=== PATIENT | female | born 1950 | race Hispanic/Latino ===

== ENCOUNTER 2021-03-31 19:52 | Emergency (ER) | payer OTHER ==
[~2021-03-31] VITALS: Ht 147.3 cm; Wt 54.4 kg
[2021-03-31] MEDS ORDERED: 0.9%NACL 1000ML 1,000 ML IV ONE (20:00)
[2021-03-31] MEDS ORDERED: KETOROLAC 30MG VIAL (30MG/ML) IV ONE (20:00)
[2021-03-31] MEDS ORDERED: ONDANSETRON 4MG INJ IVP ONE (20:00)
[2021-03-31] MEDS ORDERED: ONDANSETRON 4MG INJ ONE (20:01)
[2021-03-31] MEDS ORDERED: KETOROLAC 30MG VIAL (30MG/ML) ONE (20:01)
[2021-03-31 20:09] LABS: APPEARANCE,URINE Clear (CLEAR); BILIRUBIN,URINE Negative (NEGATIVE); COLOR,URINE Yellow (YELLOW); GLUCOSE, URINE (UA) Negative (NEGATIVE); KETONES,URINE Negative (NEGATIVE); LEUKOCYTE ESTERASE ,URINE Small (NEGATIVE); NITRATE,URINE Negative (NEGATIVE); OCCULT BLOOD,URINE Negative (NEGATIVE); PROTEIN,URINE Negative (NEGATIVE)
[2021-03-31 20:16] LABS: BASOPHILS % (AUTO) 0.4 % (0.0-5.0); EOSINOPHILS % (AUTO) 1.4 % (0.0-8.0); LYMPHOCYTES % (AUTO) 23.7 % (21.0-51.0); MEAN CORPUSCULAR HEMOGLOBIN 26.5 pg (27.0-33.0); MEAN CORPUSCULAR HGB CONC 32.3 g/dL (32.0-36.0); MEAN CORPUSCULAR VOLUME 82.1 fL (79-99); MONOCYTES % (AUTO) 6.5 % (3.0-13.0); NEUTROPHILS % (AUTO) 67.1 % (40.0-77.0); PLATELET COUNT (AUTO) 257 K/uL (130-400); RED BLOOD CELL COUNT(AUTO) 4.75 MIL/uL (4.00-5.50); RED CELL DISTRIBUTION WIDTH 12.6 % (11.0-15.5); WHITE BLOOD COUNT (AUTO) 7.1 K/uL (4.8-10.8)
[2021-03-31 20:30] LABS: POTASSIUM 4.1 mmol/L (3.5-5.1)
[2021-03-31 20:31] LABS: BACTERIA,URINE None Seen /HPF (None Seen); RBC,URINE None Seen /HPF (0-1); SQUAMOUS EPITHELIAL CELL,UR Moderate /HPF (0-2)
[2021-03-31 20:34] LABS: ALBUMIN 4.1 g/dL (3.5-5.0); BILIRUBIN,TOTAL 0.3 mg/dL (0.2-1.0); CRP QUANTITATIVE 4.6 mg/L (0.00-9.0); TOTAL PROTEIN, SERUM 7.3 g/dL (6.0-8.3)
[2021-03-31] MEDS ORDERED: CEFTRIAXONE 1G VIAL IVP ONE (21:00)
[2021-03-31] MEDS ORDERED: LOSA1TAB7 PO (21:33)
[2021-03-31] MEDS ORDERED: CEPH500B PO (21:33)
[2021-03-31] MEDS ORDERED: METF-446 PO (21:33)
[2021-03-31 21:36] VITALS: BP 146/79
== END 2021-03-31 21:56 | disposition home or self-care (01) ==
LOC: EDH 19:52
DX: N20.0 Calculus of kidney (principal); N39.0 Urinary tract infection, site not specified; E11.65 Type 2 diabetes mellitus with hyperglycemia; E03.9 Hypothyroidism, unspecified
CPT/HCPCS: 36415; 74176; 80053; 81001; 83690; 84484; 85025; 86140; 96361; 96374; 96375; 99284; J0696; J1885; J2405; J7030